=== PATIENT | male | born 1980 | race Caucasian/White ===

== ENCOUNTER 2021-04-12 12:16 | Emergency (ER) | payer BC ==
[~2021-04-12] VITALS: Ht 172.7 cm; Wt 98.5 kg
[2021-04-12] MEDS ORDERED: SODIUM CHLORIDE 0.9% 1000ML 1,000 ML IV STA (12:52)
[2021-04-12] MEDS ORDERED: SODIUM CHLORIDE 0.9% 1000ML 1,000 ML ONE (13:16)
[2021-04-12] MEDS ORDERED: IOPAMIDOL 370 MG/ML 200 ML INFUS..BTL INJ ONE (13:50)
[2021-04-12] MEDS ORDERED: SODIUM CHLORIDE 0.9% 50ML 50 ML ONE (13:51)
[2021-04-12] MEDS ORDERED: ALBUTEROL SULF 0.083% NEB SOLN 3 ML NEB NEB STA (14:19)
[2021-04-12] MEDS ORDERED: IPRATROPIUM BROMIDE 0.02% 2.5 ML NEB NEB STA (14:19)
[2021-04-12] MEDS ORDERED: DEXAMETHASONE SOD PHOS INJ 4 MG/ML VIAL ONE (14:30)
[2021-04-12] MEDS ORDERED: DEXAMETHASONE SOD PHOS 10 MG/1 ML VIAL IV NR (14:30)
[2021-04-12] MEDS ORDERED: ALBUTEROL/IPRATROPIUM 3 ML NEB ONE (14:30)
[2021-04-12] MEDS ORDERED: TYLENOL # 31 EA PO (14:43)
[2021-04-12] MEDS ORDERED: CEFDINIR300 MG PO (14:43)
[2021-04-12] MEDS ORDERED: ONDANSETRON ODT4 MG PO (14:43)
[2021-04-12] MEDS ORDERED: CEFTRIAXONE 1 GM VIAL IV ONE (14:45)
[2021-04-12] MEDS ORDERED: CEFTRIAXONE 1 GM VIAL ONE (14:55)
== END 2021-04-12 14:55 | disposition home or self-care (01) ==
LOC: FSED 12:50
DX: R05 Cough (principal); J40 Bronchitis, not specified as acute or chronic; J05.10 Acute epiglottitis without obstruction; I10 Essential (primary) hypertension; E03.9 Hypothyroidism, unspecified; Z98.84 Bariatric surgery status
CPT/HCPCS: 70491; 71046; 80053; 81003; 83518; 85025; 96374; 96375; 99284; J0696; J1100; J7030; Q9967